=== PATIENT | male | born 1965 | race African-American/Black ===

== ENCOUNTER 2019-01-28 06:30 | Emergency (ER) | payer BC, OTHER ==
--- NOTE | 2019-01-28 07:29 | RADIOLOGY REPORT (SQ) ---
EXAM: X-ray knee four or more views CLINICAL DATA: 53-year-old male with bone tenderness TECHNICAL DATA: Four x-ray views of the left knee were performed on 01/28/2019 at 6:57 AM. COMPARISONS: None FINDINGS: There is no evidence of fracture or dislocation. There is no significant arthritis or degenerative change. No focal lytic or sclerotic bone lesions are seen. Bone mineralization is normal. No focal soft tissue abnormalities are identified. IMPRESSION: No evidence of acute osseous injury involving the left knee.
[2019-01-28] MEDS ORDERED: OXYCODONE HCL IR 5 MG TABLET PO ONE (08:13)
--- NOTE | 2019-01-28 08:15 | ER Document Report ---
HPI - HPI Time Seen by Provider: 01/28/19 08:05 Pain Level: 5 - CONSTITUTIONAL Constitutional: DENIES: Fever, Chills - MUSCULOSKELETAL Musculoskeletal: REPORTS: Extremity pain - L knee Past Medical History - Social History Smoking Status: Current Every Day Smoker Frequency of alcohol use: Occasional Family History: Reviewed & Not Pertinent Patient has suicidal ideation: No Patient has homicidal ideation: No Vertical Provider Document - INFECTION CONTROL TRAVEL OUTSIDE OF THE [place] IN LAST 30 DAYS: No Course - Vital Signs Vital signs: Temp Pulse Resp BP Pulse Ox 97.8 F 60 24 H 165/88 H 97 01/28/19 06:42 01/28/19 06:42 01/28/19 06:42 01/28/19 06:42 01/28/19 06:42 Discharge - Discharge Clinical Impression: Left knee pain Qualifiers: Chronicity: acute Qualified Code(s): M25.562 - Pain in left knee Condition: Stable Disposition: HOME, SELF-CARE Additional Instructions: Rest, Ice, Compression, Elevation Use crutches/splint as directed Tylenol/ibuprofen as needed Light stretches daily Strength exercises as able Moist heat and massage may help F/u with your PCP in 3-5 days for a recheck Consider consult(s) with Orthopedics/physical therapy for ongoing/worsening symptoms Return to the ED with any worsening symptoms and/or development of fever, headache, chest pain, palpitations, syncope, shortness of breath, trouble breathing, abdominal pain, n/v/d, muscle weakness/paralysis, numbness/tingling, swelling, redness, or other worsening symptoms that are concerning to you. Prescriptions: Meloxicam [Mobic 7.5 Mg Tablet] 7.5 mg PO BID PRN #30 tablet PRN Reason: Forms: Elevated Blood Pressure Referrals: MOJGAN GONZALEZ JR, DO [ACTIVE PROVISIONAL STAFF] - Follow up as needed [facility] [Provider Group] - Follow up as needed
[2019-01-28 08:30] VITALS: BP 143/73
== END 2019-01-28 08:35 | disposition home or self-care (01) ==
LOC: ER 06:30
DX: M25.562 Pain in left knee (principal); F17.200 Nicotine dependence, unspecified, uncomplicated
CPT/HCPCS: 99283; 73564; L1830